=== PATIENT | female | born 1935 | race Caucasian/White ===

== ENCOUNTER 2016-09-14 11:55 | Inpatient (IN) | payer MEDICARE ==
[~2016-09-14] VITALS: Ht 149.9 cm; Wt 62.9 kg
[~2016-09-14 11:55] MED LIST: ACIDTAB4 PO; ALBU1AER INH; CALC600T44 PO; CARV6.252 PO; CLAR10TA7 PO; CLIN150 PO; COZA50TA PO; E-40CAP PO; FLON0.053; FURO20 PO; GABA100C2 PO; MIRT7.5T10 PO; OMEP20TA PO; ORPH100T PO; SYNT112T PO; TAB-TAB PO; VIIB40TA PO; VITA100018 PO; VITA100T5 PO; [UNRECOGNIZED DRUG - REMARK]
[2016-09-14 12:05] VITALS: BP 130/75; PULSE 71; RESP 16; TEMP 98.6; O2SAT 94
--- NOTE | 2016-09-14 12:27 | PD ---
HPI . Cough and chest congestion Chief Complaint: Respiratory Symptoms Time Seen by Provider: 12:16 Travel History International Travel<30 days: No Contact w/Intl Traveler<30days: No Traveled to known affect area: No History of Present Illness HPI Patient presents with a 2 week history of cough and congestion. She is wheezing. She has completed the Z-Nicolas. She is using ProCare twice a day. Her symptoms are not improving. She denies fever but does state that she has yellow sputum production. She has a history of chronic lung disease. PFSH Past Medical History Depression: Yes Cardiovascular Problems: Yes Diabetes: No Diminished Hearing: No GERD: Yes Hypertension: Yes Immunizations Current: No Menopausal: Yes Ovarian Cysts: Yes (LAPAROTOMY) Past Surgical History Appendectomy: Yes Joint Replacement: Yes (KNEE X 3, BILAT SHOULDER) Oral Surgery: Yes (RIGTH TMJ SURGERY) Social History Alcohol Use: Yes (APPROX 1 DRINK PER WEEK) Tobacco Use: No Substance Use: No Allergies-Medications (Allergen,Severity, Reaction): Coded Allergies: Demerol (Verified Allergy, Mild, RASH, 09/14/16) Morphine (Verified Allergy, Mild, RASH, 09/14/16) Penicillin (Verified Allergy, Mild, RASH, 09/14/16) Reported Meds & Prescriptions Reported Meds & Active Scripts Active Reported Proair Hfa 8.5 GM Inh (Albuterol Sulfate) 90 Mcg/Act Aer 2 Puff INH Q6H PRN 108 mcg/actuation Omeprazole 20 Mg Tab 20 Mg PO DAILY Furosemide 20 Mg Tab 20 Mg PO DAILY Tizanidine (Tizanidine HCl) 2 Mg Tab 2 Mg PO HS Mirtazapine 45 Mg Tab 22.5 Mg PO HS Carvedilol 6.25 Mg Tab 6.25 Mg PO BID Losartan (Losartan Potassium) 100 Mg Tab 100 Mg PO DAILY Levothyroxine (Levothyroxine Sodium) 100 Mcg Tab 100 Mcg PO DAILY [vibryd] 40 Mg PO HS Raloxifene (Raloxifene HCl) 60 Mg Tab 60 Mg PO DAILY Gabapentin 300 Mg Cap 300 Mg PO BID Review of Systems Except as stated in HPI: all other systems reviewed are Neg General / Constitutional: No: Fever, Chills Respiratory: Positive: Cough, Shortness of Breath, Wheezing Physical Exam Narrative GENERAL: This is a spry 80-year-old woman who is in no acute distress but who does have audible wheezing. SKIN: Warm and dry. HEAD: Atraumatic. Normocephalic. EYES: Pupils equal and round. ENT: No nasal bleeding or discharge. Mucous membranes pink and moist. NECK: Trachea midline. CARDIOVASCULAR: Regular rate and rhythm. RESPIRATORY: No accessory muscle use. Good air movement throughout. Diffuse coarse expiratory wheezing. GASTROINTESTINAL: Abdomen soft, non-tender, nondistended. MUSCULOSKELETAL: No obvious deformities. No edema. NEUROLOGICAL: Awake and alert. No obvious cranial nerve deficits. Motor grossly within normal limits. Normal speech. PSYCHIATRIC: Appropriate mood and affect; insight and judgment normal. Data Data Last Documented VS Vital Signs Date Time Temp Pulse Resp B/P Pulse Ox O2 Delivery O2 Flow Rate FiO2 09/14/16 13:10 96 Room Air 09/14/16 12:05 98.6 71 16 130/75 Orders Complete Blood Count With Diff (09/14/16 12:21) Basic Metabolic Panel (Bmp) (09/14/16 12:21) B-Type Natriuretic Peptide (09/14/16 12:21) Iv Access Insert/Monitor (09/14/16 12:21) Oximetry (09/14/16 12:21) Chest, Single Ap (09/14/16 12:21) Sodium Chloride 0.9% Flush (Ns Flush) (09/14/16 12:30) Methylprednisolone So Succ Inj (Solumedr (09/14/16 12:30) Albuterol-Ipratropium Neb (Duoneb Neb) (09/14/16 12:30) Labs Laboratory Tests Test 09/14/16 12:42 White Blood Count 4.7 TH/MM3 Red Blood Count 4.39 MIL/MM3 Hemoglobin 13.8 GM/DL Hematocrit 40.7 % Mean Corpuscular Volume 92.7 FL Mean Corpuscular Hemoglobin 31.4 PG Mean Corpuscular Hemoglobin 33.8 % Concent Red Cell Distribution Width 13.7 % Platelet Count 224 TH/MM3 Mean Platelet Volume 8.1 FL Neutrophils (%) (Auto) % Lymphocytes (%) (Auto) % Monocytes (%) (Auto) % Eosinophils (%) (Auto) % Basophils (%) (Auto) % Neutrophils # (Auto) TH/MM3 Lymphocytes # (Auto) TH/MM3 Monocytes # (Auto) TH/MM3 Eosinophils # (Auto) TH/MM3 Basophils # (Auto) TH/MM3 CBC Comment AUTO DIFF Differential Total Cells 100 Counted Neutrophils % (Manual) 59 % Band Neutrophils % 1 % Lymphocytes % 24 % Monocytes % 10 % Eosinophils % 6 % Neutrophils # (Manual) 2.8 TH/MM3 Differential Comment FINAL DIFF MANUAL Platelet Estimate NORMAL Platelet Morphology Comment NORMAL Red Cell Morphology Comment NORMAL Sodium Level 137 MEQ/L Potassium Level 4.6 MEQ/L Chloride Level 100 MEQ/L Carbon Dioxide Level 31.0 MEQ/L Anion Gap 6 MEQ/L Blood Urea Nitrogen 11 MG/DL Creatinine 0.76 MG/DL Estimat Glomerular Filtration 73 ML/MIN Rate Random Glucose 83 MG/DL Calcium Level 8.8 MG/DL B-Type Natriuretic Peptide 120 PG/ML MDM Medical Decision Making Medical Screen Exam Complete: Yes Emergency Medical Condition: Yes Differential Diagnosis My differential diagnosis includes but is not limited to asthma, COPD, bronchitis, pneumonia, CHF Narrative Course Patient presents for evaluation and treatment of cough, chest congestion and wheezing. I have ordered a duo nebs and Solu-Medrol pending her workup. 1:20 PM Chest x-ray is negative for infiltrate. Chest x-ray has been independently viewed by me. CBC has normal white count of 4.7. Electrolytes are normal. BNP is still pending. The patient is improving but not to the point where she is able to go home. She still has audible wheezing. Sats are 94% while receiving a breathing treatment. Physician Communication Physician Communication Dr. Aaliyah Nguyen will admit her for observation. Diagnosis Primary Impression: Bronchitis with bronchospasm Admitting Information Admitting Physician Requests: Admit Condition: Stable Rosana Cardoza MD Sep 14, 2016 12:27
[2016-09-14] MEDS ORDERED: SODIUM CHLORIDE 0.9% FLUSH 5 ML FLUSH IVF PRN (12:30)
[2016-09-14] MEDS ORDERED: methylPREDNISolone SOD SUCC 125 MG/2 ML VIAL IVP ONE (12:30)
[2016-09-14] MEDS ORDERED: vibryd PO (12:36)
[2016-09-14] MEDS ORDERED: LEVO100T5 PO (12:36)
[2016-09-14] MEDS ORDERED: TIZA2TAB PO (12:36)
[2016-09-14] MEDS ORDERED: LOSA100T PO (12:36)
[2016-09-14] MEDS ORDERED: ALBUAER3 INH (12:36)
[2016-09-14] MEDS ORDERED: MIRT45TA PO (12:36)
[2016-09-14] MEDS ORDERED: FURO20TA PO (12:36)
[2016-09-14] MEDS ORDERED: CARV6.252 PO (12:36)
[2016-09-14] MEDS ORDERED: RALO1TAB PO (12:36)
[2016-09-14] MEDS ORDERED: OMEP20TA PO (12:36)
[2016-09-14] MEDS ORDERED: GABA300C5 PO (12:36)
[2016-09-14 12:47] LABS: HEMATOCRIT 40.7 % (35.0-46.0); MEAN CELL VOLUME 92.7 FL (80.0-100.0); MEAN CORPUSCULAR HEMOGLOBIN 31.4 PG (27.0-34.0); MEAN CORPUSCULAR HGB CONC 33.8 % (32.0-36.0); PLATELET COUNT 224 TH/MM3 (150-450); RED BLOOD COUNT 4.39 MIL/MM3 (4.00-5.30); RED CELL DISTRIBUTION WIDTH 13.7 % (11.6-17.2); WHITE BLOOD COUNT 4.7 TH/MM3 (4.0-11.0)
[2016-09-14 12:48] LABS: HEMO FLAGS AUTO DIFF
[2016-09-14 12:54] LABS: POTASSIUM 4.6 MEQ/L (3.5-5.1)
--- NOTE | 2016-09-14 12:56 | RADHPO ---
EXAM DATE/TIME: 09/14/2016 12:44 [facility] COMPARISON: MYOCARDIAL PERF PHARM SPECT, GATED W/EF, September 24, 2013, 15:43. INDICATIONS : Cough, congestion, short of breath. MEDICAL HISTORY : Hypertension. SURGICAL HISTORY : None. ENCOUNTER: Initial ACUITY: 1 week PAIN SCORE: 0/10 LOCATION: Bilateral chest FINDINGS: A single view of the chest demonstrates the lungs to be symmetrically aerated without evidence of mas s, infiltrate or effusion. The cardiac silhouette appears mildly enlarged. Anterior cervical fusion h ardware noted.. Osseous structures are intact. CONCLUSION: Mildly enlarged cardiac silhouette without evidence of congestive heart failure.. Dunia Alexander MD on September 14, 2016 at 12:53 Board Certified Radiologist. This report was verified electronically.
[2016-09-14] MEDS: RESP: ALBUTEROL 2.5 MG/IPRATROPIUM 0.5 MG NEB (SCH) INH ×2 (13:05→13:10)
[2016-09-14 13:10] VITALS: O2SAT 96
[2016-09-14 13:10] LABS: BANDS 1 % (0-6); EOSINOPHILS 6 % (0-4); NEUTROPHIL # MANUAL DIFF 2.8 TH/MM3 (1.8-7.7); POLYS (SEG NEUTROPHILS) 59 % (16-70); WBC DIFF SAMPLE 100
[2016-09-14 13:11] LABS: PLATELET ESTIMATE SMEAR NORMAL (NORMAL); PLATELET MORPHOLOGY NORMAL (NORMAL); SCAN/DIFF FINAL DIFF MANUAL
--- NOTE | 2016-09-14 14:44 | HHI.HP ---
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 Patient says her was sick and she seems to have gotten that from him. She notes increased sputum production and chest discomfort relieved with coughing. Patient has not had any fevers or chills. She did follow up with outpatient urgent care as she is visiting from [place]. She was given a Z-Nicolas and he'll be using her home albuterol inhaler at least twice a day. She did not notice any improvement so she came to the emergency room. Here she is hoarse, coughing, short of breath with exertion and wheezy on exam. Patient's been recommended for further evaluation and treatment in the hospital to do failed outpatient treatment and continue symptoms especially with her known history of bronchiectasis which has been treated multiple times in the past by her promotions firm accounts manager in [place]. Review of Systems Constitutional: DENIES: Diaphoretic episodes, Fatigue, Fever, Weight gain, Weight loss, Chills, Dizziness, Change in appetite, Night Sweats Endocrine: DENIES: Abnorml menstrual pattern, Heat/cold intolerance, Polydipsia , Polyuria, Polyphagia Ears, nose, mouth, throat: DENIES: Tinnitus, Hearing loss, Vertigo, Nasal discharge, Oral lesions, Throat pain, Hoarseness, Ear Pain, Running Nose, Epistaxis, Sinus Pain, Toothache, Odynophagia Respiratory: COMPLAINS OF: Cough, Wheezing, Sputum production, Shortness of breath, DENIES: Apneas, Snoring, Hemoptysis Cardiovascular: COMPLAINS OF: Dyspnea on Exertion, DENIES: Chest pain, Palpitations, Syncope, PND, Lower Extremity Edema, Orthopnea, Claudication Musculoskeletal: DENIES: Joint pain, Muscle aches, Stiffness, Joint Swelling, Back pain, Neck pain Integumentary: DENIES: Abnormal pigmentation, Pruritus, Rash, Nail changes, Breast masses, Breast skin changes, Nipple discharge Hematologic/lymphatic: DENIES: Bruising, Lymphadenopathy Immunologic/allergic: DENIES: Eczema, Urticaria Psychiatric: DENIES: Anxiety, Confusion, Mood changes, Depression, Hallucinations, Agitation, Suicidal Ideation, Homicidal Ideation, Delusions Past Family Social History Past Medical History History of bronchiectasis, GERD, chronic back pain, hypertension, thyroid disease Past Surgical History Multiple surgeries including knee surgery 3, joint surgeries, laparotomy, multiple back surgeries Reported Medications Reviewed in the medical record, did receive outpatient Z-Nicolas in an urgent care office Allergies: Coded Allergies: Demerol (Verified Allergy, Mild, RASH, 09/14/16) Morphine (Verified Allergy, Mild, RASH, 09/14/16) Penicillin (Verified Allergy, Mild, RASH, 09/14/16) Active Ordered Medications Reviewed and the medical record Family History Family history of hypertension Social History Visiting from [place], no current tobacco or alcohol dependency, has been sick with cough Physical Exam Vital Signs Vital Signs Date Time Temp Pulse Resp B/P Pulse Ox O2 Delivery O2 Flow Rate FiO2 09/14/16 13:10 96 Room Air 09/14/16 12:05 98.6 71 16 130/75 94 Physical Exam GENERAL: This is a well-nourished, well-developed patient, in no apparent distress. SKIN: No rashes, ecchymoses or lesions. Cool and dry. HEAD: Atraumatic. Normocephalic. No temporal or scalp tenderness. EYES: Pupils equal round and reactive. Extraocular motions intact. No scleral icterus. No injection or drainage. ENT: Nose without bleeding, purulent drainage or septal hematoma. Throat without erythema, tonsillar hypertrophy or exudate. Uvula midline. Airway patent. NECK: Trachea midline. No JVD or lymphadenopathy. Supple, nontender, no meningeal signs. CARDIOVASCULAR: Regular rate and rhythm without murmurs, gallops, or rubs. RESPIRATORY: Bilateral wheezes and rhonchi productive cough GASTROINTESTINAL: Abdomen soft, non-tender, nondistended. No hepato-splenomegaly , or palpable masses. No guarding. MUSCULOSKELETAL: Extremities without clubbing, cyanosis, or edema. No joint tenderness, effusion, or edema noted. No calf tenderness. Negative Homans sign bilaterally. NEUROLOGICAL: Awake and alert. Cranial nerves II through XII intact. Motor and sensory grossly within normal limits. Five out of 5 muscle strength in all muscle groups. Normal speech. Laboratory Laboratory Tests Test 09/14/16 12:42 White Blood Count 4.7 Red Blood Count 4.39 Hemoglobin 13.8 Hematocrit 40.7 Mean Corpuscular Volume 92.7 Mean Corpuscular Hemoglobin 31.4 Mean Corpuscular Hemoglobin 33.8 Concent Red Cell Distribution Width 13.7 Platelet Count 224 Mean Platelet Volume 8.1 Neutrophils (%) (Auto) Lymphocytes (%) (Auto) Monocytes (%) (Auto) Eosinophils (%) (Auto) Basophils (%) (Auto) Neutrophils # (Auto) Lymphocytes # (Auto) Monocytes # (Auto) Eosinophils # (Auto) Basophils # (Auto) CBC Comment AUTO DIFF Differential Total Cells 100 Counted Neutrophils % (Manual) 59 Band Neutrophils % 1 Lymphocytes % 24 Monocytes % 10 Eosinophils % 6 Neutrophils # (Manual) 2.8 Differential Comment FINAL DIFF MANUAL Platelet Estimate NORMAL Platelet Morphology Comment NORMAL Red Cell Morphology Comment NORMAL Sodium Level 137 Potassium Level 4.6 Chloride Level 100 Carbon Dioxide Level 31.0 Anion Gap 6 Blood Urea Nitrogen 11 Creatinine 0.76 Estimat Glomerular Filtration 73 Rate Random Glucose 83 Calcium Level 8.8 B-Type Natriuretic Peptide 120 Result Diagram: 09/14/16 1242 09/14/16 1242 Imaging Last Impressions Chest X-Ray 09/14/16 1221 Signed Impressions: Service Date/Time: Wednesday, September 14, 2016 12:44 - CONCLUSION: Mildly enlarged cardiac silhouette without evidence of congestive heart failure.. Dunia Alexander MD Assessment and Plan Problem List: (1) Bronchitis with bronchospasm ICD Code: J20.9 Status: Acute Plan: We'll continue with antibiotics, bronchodilators and steroids. Patient with history of staph infections although she denies any history of MRSA. Overall improved with current treatment plan. (2) HTN (hypertension) ICD Code: I10 Status: Acute Plan: Continue home medications for blood pressure which is currently controlled we'll follow while on steroids (3) Thyroid disease ICD Code: E07.9 Status: Acute Plan: Continue Synthroid (4) Chronic back pain ICD Code: M54.9 Status: Acute Plan: We'll continue with patient's current pain regimen which appears to be doing her well Aaliyah Nguyen MD Sep 14, 2016 14:44
[2016-09-14] MEDS ORDERED: ACETAMINOPHEN 325 MG TAB PO PRN (14:45)
[2016-09-14] MEDS ORDERED: RESP: ALBUTEROL 2.5 MG/IPRATROPIUM 0.5 MG NEB (PRN) NEB (14:45)
[2016-09-14] MEDS ORDERED: SODIUM CHLORIDE 0.9% FLUSH 5 ML FLUSH FLUSH PRN (14:45)
[2016-09-14 14:53] VITALS: BP 141/73; PULSE 79; RESP 18; O2SAT 95
[2016-09-14] MEDS ORDERED: PILL SPLITTER OTHER PRN (15:00)
[2016-09-14 15:15] VITALS: BP 149/82; PULSE 71; RESP 18; TEMP 96.8; O2SAT 97
[2016-09-14] MEDS: SULFAMETHOXAZOLE-TRIMETHOPRIM DS 800-160 MG TAB PO SCH ×2 (16:25→21:18)
[2016-09-14] MEDS: DOXYCYCLINE HYCLATE 100 MG TAB PO SCH ×2 (16:25→21:20)
[2016-09-14] MEDS: ENOXAPARIN SODIUM 40 MG/0.4 ML SYRINGE SQ SCH (16:25)
[2016-09-14] MEDS: RESP: ALBUTEROL 2.5 MG/IPRATROPIUM 0.5 MG NEB (SCH) NEB (19:17)
[2016-09-14 20:00] VITALS: BP 127/77; PULSE 97; RESP 18; TEMP 97.7; O2SAT 95
[2016-09-14] MEDS ORDERED: methylPREDNISolone SOD SUCC 125 MG/2 ML VIAL IV PUSH SCH (21:00)
[2016-09-14] MEDS: SODIUM CHLORIDE 0.9% FLUSH 5 ML FLUSH FLUSH SCH (21:16)
[2016-09-14] MEDS: GABAPENTIN 300 MG CAP PO SCH (21:17)
[2016-09-14] MEDS: CARVEDILOL 6.25 MG TAB PO SCH (21:18)
[2016-09-14] MEDS: MIRTAZAPINE 15 MG TAB PO SCH (21:19)
[2016-09-14] MEDS: guaiFENesin E.R. 600 MG TAB PO SCH (21:19)
[2016-09-14] MEDS: VIIBRYD 40 MG PO SCH (22:22)
[2016-09-15] VITALS: BP 91/56; PULSE 90; RESP 16; TEMP 97.1; O2SAT 92
[2016-09-15] MEDS: LEVOTHYROXINE SODIUM 100 MCG TAB PO SCH (05:24)
[2016-09-15 06:42] LABS: AUTOMATED NEUTROPHIL # 6.1 TH/MM3 (1.8-7.7); BASOPHIL % 0.1 % (0.0-2.0); EOSINOPHIL % 0.1 % (0.0-4.0); HEMATOCRIT 41.5 % (35.0-46.0); HEMO FLAGS DIFF FINAL; LYMPH % 10.7 % (9.0-44.0); LYMPHOCYTE # 0.7 TH/MM3 (1.0-4.8); MEAN CELL VOLUME 92.8 FL (80.0-100.0); MEAN CORPUSCULAR HEMOGLOBIN 30.7 PG (27.0-34.0); MEAN CORPUSCULAR HGB CONC 33.1 % (32.0-36.0); MONO % 0.7 % (0.0-8.0); NEUT % 88.4 % (16.0-70.0); PLATELET COUNT 217 TH/MM3 (150-450); POTASSIUM 4.2 MEQ/L (3.5-5.1); RED BLOOD COUNT 4.48 MIL/MM3 (4.00-5.30); RED CELL DISTRIBUTION WIDTH 13.7 % (11.6-17.2); WHITE BLOOD COUNT 6.8 TH/MM3 (4.0-11.0)
[2016-09-15 06:47] LABS: BICARBONATE 28.2 MEQ/L (21.0-32.0)
[2016-09-15] MEDS: RESP: ALBUTEROL 2.5 MG/IPRATROPIUM 0.5 MG NEB (SCH) NEB ×3 (07:29→19:28)
[2016-09-15 08:10] VITALS: BP 144/73; PULSE 71; RESP 18; TEMP 97.3; O2SAT 98
--- NOTE | 2016-09-15 09:43 | HHI.PR ---
Subjective Remarks Patient seen today in follow-up for bronchitis. Doing better. Oxygenation is improved. Tolerating bronchodilators and steroids. Objective Vitals Vital Signs Date Time Temp Pulse Resp B/P Pulse Ox O2 Delivery O2 Flow Rate FiO2 09/15/16 08:10 97.3 71 18 144/73 98 09/15/16 00:00 97.1 90 16 91/56 92 09/14/16 20:00 97.7 97 18 127/77 95 09/14/16 15:15 96.8 71 18 149/82 97 09/14/16 14:53 79 18 141/73 95 Room Air 09/14/16 13:10 96 Room Air 09/14/16 12:05 98.6 71 16 130/75 94 I/O 09/14/16 09/14/16 09/14/16 09/15/16 09/15/16 09/15/16 07:00 15:00 23:00 07:00 15:00 23:00 Intake Total 240 ml 240 ml Balance 240 ml 240 ml Intake Oral 240 ml 240 ml # Voids 2 2 # Bowel Movements 1 0 Result Diagram: 09/15/16 0535 09/15/16 0535 Objective Remarks GENERAL: This is a well-nourished, well-developed patient, in no apparent distress. CARDIOVASCULAR: Regular rate and rhythm without murmurs, gallops, or rubs. RESPIRATORY: Mild scattered wheezes but greatly improved from previous exam GASTROINTESTINAL: Abdomen soft, non-tender, nondistended. Normal active bowel sounds MUSCULOSKELETAL: Extremities without clubbing, cyanosis, or edema. NEURO: Alert & Oriented x4 to person, place, time, situation. Moves all ext x4 A/P Problem List: (1) Bronchitis with bronchospasm ICD Code: J20.9 Status: Acute Plan: We'll continue with iv antibiotics, mucinex, bronchodilators and po steroids. Patient with history of staph infections although she denies any history of MRSA. Overall improved with current treatment plan. Sputum pending (2) HTN (hypertension) ICD Code: I10 Status: Acute Plan: Continue home medications for blood pressure which is currently controlled we'll follow while on steroids (3) Thyroid disease ICD Code: E07.9 Status: Acute Plan: Continue Synthroid (4) Chronic back pain ICD Code: M54.9 Status: Acute Plan: We'll continue with patient's current pain regimen which appears to be doing her well Discharge Planning Discharge home one to 2 days if improved Aaliyah Nguyen MD Sep 15, 2016 09:43
[2016-09-15] MEDS ORDERED: VIIB40TA PO (10:39)
[2016-09-15] MEDS: SULFAMETHOXAZOLE-TRIMETHOPRIM DS 800-160 MG TAB PO SCH ×2 (11:07→23:05)
[2016-09-15] MEDS: SODIUM CHLORIDE 0.9% FLUSH 5 ML FLUSH FLUSH SCH ×2 (11:07→23:05)
[2016-09-15] MEDS: CARVEDILOL 6.25 MG TAB PO SCH ×2 (11:07→23:07)
[2016-09-15] MEDS: RALOXIFENE HCL 60 MG TAB PO SCH (11:08)
[2016-09-15] MEDS: LOSARTAN 50 MG TAB PO SCH (11:08)
[2016-09-15] MEDS: DOXYCYCLINE HYCLATE 100 MG TAB PO SCH ×2 (11:08→23:16)
[2016-09-15] MEDS: PANTOPRAZOLE SOD 20 MG DELAYED RELEASE TAB PO SCH (11:08)
[2016-09-15] MEDS: GABAPENTIN 300 MG CAP PO SCH ×2 (11:08→23:11)
[2016-09-15] MEDS: guaiFENesin E.R. 600 MG TAB PO SCH ×2 (11:08→23:05)
[2016-09-15 12:07] VITALS: BP 113/71; PULSE 69; RESP 18; TEMP 97.3; O2SAT 99
[2016-09-15] MEDS: ENOXAPARIN SODIUM 40 MG/0.4 ML SYRINGE SQ SCH (16:11)
[2016-09-15 17:17] VITALS: BP 141/73; PULSE 82; RESP 18; TEMP 97.3; O2SAT 95
[2016-09-15 20:00] VITALS: BP 126/80; PULSE 82; RESP 18; TEMP 98.1; O2SAT 96
[2016-09-15] MEDS: predniSONE 20 MG TAB PO SCH (23:05)
[2016-09-15] MEDS: MIRTAZAPINE 15 MG TAB PO SCH (23:06)
[2016-09-15] MEDS: VIIBRYD 40 MG PO SCH (23:11)
[2016-09-16] VITALS: BP 137/77; PULSE 85; RESP 18; TEMP 97.7; O2SAT 93
[2016-09-16] MEDS: LEVOTHYROXINE SODIUM 100 MCG TAB PO SCH (05:06)
[2016-09-16] MEDS: RESP: ALBUTEROL 2.5 MG/IPRATROPIUM 0.5 MG NEB (SCH) NEB (07:28)
[2016-09-16 08:00] VITALS: BP 120/75; PULSE 81; RESP 18; TEMP 97; O2SAT 97
[2016-09-16] MEDS: PANTOPRAZOLE SOD 20 MG DELAYED RELEASE TAB PO SCH (08:33)
[2016-09-16] MEDS: LOSARTAN 50 MG TAB PO SCH (08:33)
[2016-09-16] MEDS: predniSONE 20 MG TAB PO SCH (08:33)
[2016-09-16] MEDS: GABAPENTIN 300 MG CAP PO SCH (08:33)
[2016-09-16] MEDS: guaiFENesin E.R. 600 MG TAB PO SCH (08:34)
[2016-09-16] MEDS: RALOXIFENE HCL 60 MG TAB PO SCH (08:34)
[2016-09-16] MEDS: SULFAMETHOXAZOLE-TRIMETHOPRIM DS 800-160 MG TAB PO SCH (08:34)
[2016-09-16] MEDS: DOXYCYCLINE HYCLATE 100 MG TAB PO SCH (08:34)
[2016-09-16] MEDS: CARVEDILOL 6.25 MG TAB PO SCH (08:34)
[2016-09-16] MEDS: SODIUM CHLORIDE 0.9% FLUSH 5 ML FLUSH FLUSH SCH (08:37)
[2016-09-16] MEDS ORDERED: IPRASOL NEB (10:07)
[2016-09-16] MEDS ORDERED: PRED20 PO (10:07)
[2016-09-16] MEDS ORDERED: NEBULIZER1 MI1 (10:08)
--- NOTE | 2016-09-16 10:09 | HHI.DCPOC ---
Discharge Care Plan Diagnosis: (1) HTN (hypertension) (2) Bronchitis with bronchospasm Goals to Promote Your Health * To prevent worsening of your condition and complications * To maintain your health at the optimal level Directions to Meet Your Goals Take your medications as prescribed Follow your dietary instruction Follow activity as directed Keep your appointments as scheduled Take your immunizations and boosters as scheduled If your symptoms worsen call your PCP, if no PCP go to Urgent Care Center or Emergency Room Smoking is Dangerous to Your Health. Avoid second hand smoke Call the 24-hour hour crisis hotline for domestic abuse at Aaliyah Nguyen MD Sep 16, 2016 10:09
[2016-09-16] MEDS ORDERED: DOXY100T PO (10:13)
--- NOTE | 2016-09-16 10:14 | HHI.DS ---
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 Patient says her was sick and she seems to have gotten that from him. She notes increased sputum production and chest discomfort relieved with coughing. Patient has not had any fevers or chills. She did follow up with outpatient urgent care as she is visiting from [place]. She was given a Z-Nicolas and he'll be using her home albuterol inhaler at least twice a day. She did not notice any improvement so she came to the emergency room. Here she is hoarse, coughing, short of breath with exertion and wheezy on exam. 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 CBC/BMP: 09/15/16 0535 09/15/16 0535 Significant Findings Laboratory Tests Test 09/14/16 09/15/16 12:42 05:35 Monocytes % 10 % (0-8) Eosinophils % 6 % (0-4) Estimat Glomerular Filtration 73 ML/MIN (>89) 85 ML/MIN (>89) Rate B-Type Natriuretic Peptide 120 PG/ML (0-100) Neutrophils (%) (Auto) 88.4 % (16.0-70.0) Lymphocytes # (Auto) 0.7 TH/MM3 (1.0-4.8) Random Glucose 137 MG/DL (74-106) PE at Discharge GENERAL: This is a well-nourished, well-developed patient, in no apparent distress. CARDIOVASCULAR: Regular rate and rhythm without murmurs, gallops, or rubs. RESPIRATORY: Mild scattered wheezes but greatly improved from previous exam GASTROINTESTINAL: Abdomen soft, non-tender, nondistended. Normal active bowel sounds MUSCULOSKELETAL: Extremities without clubbing, cyanosis, or edema. NEURO: Alert & Oriented x4 to person, place, time, situation. Moves all ext x4 Hospital Course Dizzy and evaluated and treated for bronchospasm due to bronchitis. Patient has a history of bronchiectasis and had some worsening symptoms. Sputum cultures so normal respiratory vishnu and the patient did well with steroids, bronchodilators and some antibiotics. Her other chronic medical problems remained quite stable. She was hypoxemic and this improved with medical treatment Pt Condition on Discharge: Good Discharge Disposition: Discharge Home Discharge Time: > 30 minutes Discharge Instructions DIET: Follow Instructions for: As Tolerated, No Restrictions Activities you can perform: Regular-No Restrictions Follow up Referrals: PCP Follow-up - 2 Weeks New Medications: Nebulizer (Nebulizer) 1 Mis Mis 1 EA .ROUTE DIRECTED Breathing Treatment #1 Ref 0 EA Doxycycline Hyclate (Doxycycline Hyclate) 100 Mg Tab 100 MG PO BID PRN Infection #10 TAB Ipratropium-Albuterol Neb (Duoneb) 0.5-2.5 Mg/3 Ml Neb 1 AMPULE NEB Q6HR WHILE AWAKE NEB PRN bronchiectasis #90 ML Prednisone (Prednisone) 20 Mg Tab 20 MG PO BID Take 20 mg twice a day for 3 days and 20 mg daily for 3 days then 10 mg daily for 3 days and stop bronchiectasis #15 TAB Continued Medications: Albuterol 8.5 GM Inh (Proair Hfa 8.5 GM Inh) 90 Mcg/Act Aer 2 PUFF INH Q6H 108 mcg/actuation PRN SHORTNESS OF BREATH #1 Ref 0 INHALER Carvedilol (Carvedilol) 6.25 Mg Tab 6.25 MG PO BID #60 Ref 0 TAB Furosemide (Furosemide) 20 Mg Tab 20 MG PO DAILY #30 Ref 0 TAB Gabapentin (Gabapentin) 300 Mg Cap 300 MG PO BID #60 Ref 0 CAP Levothyroxine (Levothyroxine) 100 Mcg Tab 100 MCG PO DAILY Thyroid #30 Ref 0 TAB Losartan (Losartan) 100 Mg Tab 100 MG PO DAILY Blood Pressure Management #30 Ref 0 TAB Mirtazapine (Mirtazapine) 45 Mg Tab 22.5 MG PO HS Depression Control #30 Ref 0 TAB Omeprazole (Omeprazole) 20 Mg Tab 20 MG PO DAILY #30 Ref 0 TAB Raloxifene (Raloxifene) 60 Mg Tab 60 MG PO DAILY Chemotherapy Management #30 Ref 0 TAB Tizanidine (Tizanidine) 2 Mg Tab 2 MG PO HS Muscle Spasm Ref 0 TAB Vilazodone (Viibryd) 40 Mg Tab 40 MG PO HS Control Depression #30 Ref 0 TAB Aaliyah Nguyen MD Sep 16, 2016 10:14
== END 2016-09-16 12:01 | disposition home or self-care (01) | DRG 203 ==
LOC: PHED 11:55 → PHEDA 13:50 → OBSVTOIN 14:37 → PH3A 15:22
PROVIDERS: ADMIT Hospitalist; ATTEND Hospitalist
DX: J20.9 Acute bronchitis, unspecified (principal); I10 Essential (primary) hypertension; J47.9 Bronchiectasis, uncomplicated; R09.02 Hypoxemia; E07.9 Disorder of thyroid, unspecified; G89.29 Other chronic pain; M54.9 Dorsalgia, unspecified; K21.9 Gastro-esophageal reflux disease without esophagitis; F32.9 Major depressive disorder, single episode, unspecified; Z88.0 Allergy status to penicillin; Z88.5 Allergy status to narcotic agent; Z96.659 Presence of unspecified artificial knee joint; Z96.612 Presence of left artificial shoulder joint; Z96.611 Presence of right artificial shoulder joint
CPT/HCPCS: 71010; 80048; 83880; 85007; 85025; 85027; 87070; 87205; 94640; 94664; 96374; J1650; J2930; J7512

== ENCOUNTER 2016-10-22 12:07 | Emergency (ER) | payer MEDICARE ==
[~2016-10-22] VITALS: Ht 152.4 cm; Wt 65.0 kg
[~2016-10-22 12:07] MED LIST changes: -ACIDTAB4 PO; -ALBU1AER INH; +ALBUAER3 INH; -CALC600T44 PO; -CLAR10TA7 PO; -CLIN150 PO; -COZA50TA PO; +DOXY100T PO; -E-40CAP PO; -FLON0.053; -FURO20 PO; +FURO20TA PO; -GABA100C2 PO; +GABA300C5 PO; +IPRASOL NEB; +LEVO100T5 PO; +LOSA100T PO; +MIRT45TA PO; -MIRT7.5T10 PO; +NEBULIZER1 MI1; -ORPH100T PO; +PRED20 PO; +RALO1TAB PO; -SYNT112T PO; -TAB-TAB PO; +TIZA2TAB PO; -VITA100018 PO; -VITA100T5 PO; -[UNRECOGNIZED DRUG - REMARK]
[2016-10-22 12:14] VITALS: BP 136/70; PULSE 72; RESP 16; TEMP 98.5; O2SAT 99
[2016-10-22] MEDS ORDERED: traMADol HCL 50 MG TAB PO ONE (13:30)
--- NOTE | 2016-10-22 13:34 | PD ---
HPI Chief Complaint: Musculoskeletal Complaint Time Seen by Provider: 13:31 Travel History International Travel<30 days: No Contact w/Intl Traveler<30days: No Traveled to known affect area: No History of Present Illness HPI Patient comes in complaining of left hip pain ongoing for a week. Patient states she's had problems with her hip in the past however she was doing well up to approximately one-week ago. Patient denies any direct trauma but states the pain began after her and her were rotating a mattress. Patient states she's had orthoscopic surgery on her right hip and thinks she may needed on her left. Patient called her primary care doctor's office today who recommend she come to the emergency department for further treatment and evaluation. Describes pain as sharp and aching pain that radiates distally. Pain is worse with walking and certain movement. Patient has been taking ibuprofen 800 mg and using topical Voltaren gel with some relief of her symptoms. Denies any fevers, loss or change in bowel or bladder, numbness or tingling anywhere. Patient reports a prior to injury she was able to ambulate normally but since this had started using a cane. PFSH Past Medical History Arthritis: Yes Autoimmune Disease: No Depression: Yes Cardiovascular Problems: Yes Diabetes: No Diminished Hearing: No GERD: Yes Genitourinary: No Hypertension: Yes Immune Disorder: No Musculoskeletal: Yes (carpal tunnel) Neurologic: No Psychiatric: Yes Reproductive: Yes (INFERTILITY ISSUES ) Respiratory: Yes Immunizations Current: No Thyroid Disease: Yes (HYPERTHYROIDISM ) ?: Not Menopausal: Yes Ovarian Cysts: Yes (LAPAROTOMY) Past Surgical History Abdominal Surgery: Yes (appendectomy, Rll BIOPSIES AND WEDGE RESECTIONS ) Appendectomy: Yes Gynecologic Surgery: Yes (WEDGE RESECTION OF OVARIES AND UTERINE SUSP. ) Joint Replacement: Yes (bilateral knees, ) Oral Surgery: Yes (R TMJ ) Thoracic Surgery: Yes (CINCH SURGERY FOR ESOPHAGEAL EROSION ) Social History Alcohol Use: Yes (APPROX 1 DRINK PER WEEK) Tobacco Use: No Substance Use: No Allergies-Medications (Allergen,Severity, Reaction): Coded Allergies: Demerol (Verified Allergy, Mild, RASH, 10/22/16) Morphine (Verified Allergy, Mild, RASH, 10/22/16) Penicillin (Verified Allergy, Mild, RASH, 10/22/16) Levaquin (Verified Adverse Reaction, Severe, SEVERE BONE PAIN, 10/22/16) Reported Meds & Prescriptions Reported Meds & Active Scripts Active Tramadol (Tramadol HCl) 50 Mg Tab 50 Mg PO Q8H PRN Ibuprofen 800 Mg Tab 800 Mg PO Q8H PRN Doxycycline Hyclate 100 Mg Tab 100 Mg PO BID PRN Nebulizer 1 Mis Mis 1 Ea .ROUTE DIRECTED Prednisone 20 Mg Tab 20 Mg PO BID Take 20 mg twice a day for 3 days and 20 mg daily for 3 days then 10 mg daily for 3 days and stop Duoneb (Ipratropium-Albuterol Neb) 0.5-2.5 Mg/3 Ml Neb 1 Ampule NEB Q6HR WHILE AWAKE NEB PRN Reported Viibryd (Vilazodone) 40 Mg Tab 40 Mg PO HS Proair Hfa 8.5 GM Inh (Albuterol Sulfate) 90 Mcg/Act Aer 2 Puff INH Q6H PRN 108 mcg/actuation Omeprazole 20 Mg Tab 20 Mg PO DAILY Furosemide 20 Mg Tab 20 Mg PO DAILY Tizanidine (Tizanidine HCl) 2 Mg Tab 2 Mg PO HS Mirtazapine 45 Mg Tab 22.5 Mg PO HS Carvedilol 6.25 Mg Tab 6.25 Mg PO BID Losartan (Losartan Potassium) 100 Mg Tab 100 Mg PO DAILY Levothyroxine (Levothyroxine Sodium) 100 Mcg Tab 100 Mcg PO DAILY Raloxifene (Raloxifene HCl) 60 Mg Tab 60 Mg PO DAILY Gabapentin 300 Mg Cap 300 Mg PO BID Review of Systems Except as stated in HPI: all other systems reviewed are Neg Physical Exam Narrative GENERAL: Well-developed, well nourished, in no acute distress, and non-ill appearing. SKIN: Warm and dry. HEAD: Atraumatic. Normocephalic. EYES: Pupils equal and round. EOMI. No scleral icterus. No injection or drainage. ENT: No nasal bleeding or discharge. Mucous membranes pink and moist. NECK: Trachea midline. Supple. No nuclear rigidity. CARDIOVASCULAR: Dorsal pulses 2+ intact and equal bilaterally. Capillary refill less than 2 seconds. No pedal edema. RESPIRATORY: No accessory muscle use. No respiratory distress. GASTROINTESTINAL: Abdomen soft, non-tender, nondistended. Hepatic and splenic margins not palpable. No pulsatile mass. MUSCULOSKELETAL: No obvious deformities. No clubbing. No cyanosis. No edema. Decreased range of motion left hip secondary to pain. Hip: FROM and equal BL with passive flexion, extension, Abduction, Adduction, and internal/external rotation. Pulses equal BL distal to injury. Capillary refill less than 2 seconds distal to injury and equal BL. FROM distal to injury and equal BL. Strength distal to injury equal BL. NV intact distal to injury and equal BL. Plantar flexion and dorsal flexion equal BL. Dorsal pulses equal BL. Patient reports increased pain with internal/external rotation of her left hip. NEUROLOGICAL: Awake and alert. No obvious cranial nerve deficits. Motor grossly within normal limits. Normal speech. PSYCHIATRIC: Appropriate mood and affect; insight and judgment normal. Data Data Last Documented VS Vital Signs Date Time Temp Pulse Resp B/P Pulse Ox O2 Delivery O2 Flow Rate FiO2 10/22/16 12:14 98.5 72 16 136/70 99 Orders Urinalysis - C+S If Indicated (10/22/16 13:22) Hip, Uni(Ap&Lat) W Ap Pelvis (10/22/16 ) Tramadol (Ultram) (10/22/16 13:30) Labs Laboratory Tests Test 10/22/16 13:50 Urine Collection Type CLEAN CATCH Urine Color YELLOW Urine Turbidity CLEAR Urine pH 7.0 Urine Specific [place] 1.009 Urine Protein NEG mg/dL Urine Glucose (UA) NEG mg/dL Urine Ketones NEG mg/dL Urine Occult Blood NEG Urine Nitrite NEG Urine Bilirubin NEG Urine Leukocyte Esterase NEG Urine WBC 0-2 /hpf Urine Squamous Epithelial 0-5 /hpf Cells Microscopic Urinalysis Comment CULT NOT INDICATED Urine Collection Time 13:50 [facility] Medical Decision Making Medical Screen Exam Complete: Yes Emergency Medical Condition: Yes Differential Diagnosis Fracture, strain, avascular necrosis, UTI, other Narrative Course There is no clinical evidence for fracture. There is no clinical evidence to suspect bony injury by exam. Radiographic examination revealed no fracture seen at this time. No obvious ligamental injury or internal derangement is noted at this time. The distal extremity appears neurovascularly intact, without evidence of neurovascular injury nor compartment syndrome. Tendon exam also was intact. The patient was discharged on pain medication and given warnings for vascular compromise. The patient is to follow up with primary care provider and/ or Orthopedics. The patient agrees with plan. Patient in no obvious distress upon re-evaluation. All pertinent laboratory/ Radiology result(s) discussed with patient. Patient was asked if they wanted to speak to my attending, which the patient did not wish to do at this time. Any questions/concerns in reference to patient diagnosis/condition discussed and clarified prior to patient's discharge. Reinforced sheer importance of close follow up with patient's primary physician or primary care clinic. Instructed patient to return to ED immediately, if symptoms return/worsen. Pt showed understanding of above instructions. Further instructions and recommendations were detailed in discharge paperwork. Pt ambulated without difficulty out of ED at discharge with her cane. Diagnosis Primary Impression: Left hip pain Referrals: Miller Spencer MD Patient Instructions: General Instructions, Hip Pain (ED) Additional Instructions: Follow-up with your primary care physician and/or orthopedics in 2-3 days for reevaluation. Take all medication as prescribed. Return to the emergency department if symptoms get worse. Med/Other Pt SpecificInfo: Prescription(s) given Scripts Tramadol 50 Mg Tab50 Mg PO Q8H PRN (PAIN GREATER THAN 7) #9 TAB Ref 0 Prov:Trung Earl MD 10/22/16 Ibuprofen 800 Mg [id number] Mg PO Q8H PRN (PAIN SCALE 1 TO 10) #12 TAB Ref 0 Prov:Trung Earl MD 10/22/16 Disposition: 01 DISCHARGE HOME Condition: Stable Timothy Bryan Oct 22, 2016 13:34
[2016-10-22 14:05] LABS: BLOOD, URINE NEG (NEG); GLUCOSE,URINE NEG (NEG); KETONE, URINE NEG (NEG); NITRITE,URINE NEG (NEG)
--- NOTE | 2016-10-22 14:08 | RADHPO ---
EXAM DATE/TIME: 10/22/2016 13:42 [facility] COMPARISON: No previous studies available for comparison. INDICATIONS : Left hip pain with no apparent injury. MEDICAL HISTORY : Hypertension. Arthritis. Hyperthyroidism. Bilateral knee replacements. SURGICAL HISTORY : Appendectomy. Fusion, lumbar. ENCOUNTER: Initial ACUITY: 1 week PAIN SCORE: 10/10 LOCATION: Left hip FINDINGS: Examination of the left hip was performed with AP Pelvis. The primary and secondary trabecular patte rn of the femoral neck is intact. There is mild superior joint space narrowing and sclerosis.. The a cetabulum is grossly intact. Postoperative changes are noted in the lower lumbar spine status post mu ltilevel fusion. CONCLUSION: Mild degenerative change in both hips. Dionicio Miguel MD on October 22, 2016 at 14:06 Board Certified Radiologist. This report was verified electronically.
[2016-10-22 14:11] LABS: METHOD OF COLLECTION CLEAN CATCH; SQUAMOUS EPITHELIAL CELL URINE 0-5 /hpf (0-5); URINE COLOR YELLOW (YELLW/STRAW); WBC, URINE 0-2 /hpf (0-5)
[2016-10-22 14:12] LABS: COMMENT (UR) CULT NOT INDICATED; CULTURE IF INDICATED CULT NOT INDICATED
[2016-10-22] MEDS ORDERED: IBUP800T23 PO (14:19)
[2016-10-22] MEDS ORDERED: TRAM50TA PO (14:19)
== END 2016-10-22 14:34 | disposition home or self-care (01) ==
LOC: PHED 12:07 → PHEFT 14:34
DX: M25.552 Pain in left hip (principal)
CPT/HCPCS: 73502; 81001; 99283

== ENCOUNTER 2016-11-20 10:43 | Emergency (ER) | payer MEDICARE ==
[~2016-11-20] VITALS: Ht 152.4 cm; Wt 68.8 kg
[~2016-11-20 10:43] MED LIST changes: +IBUP800T23 PO; +TRAM50TA PO
[2016-11-20 10:45] VITALS: BP 140/92; PULSE 77; RESP 15; TEMP 97.8; O2SAT 99
[2016-11-20] MEDS ORDERED: VITA400C2 PO (11:11)
[2016-11-20] MEDS ORDERED: CLAR10CA3 PO (11:11)
[2016-11-20] MEDS ORDERED: PYRI100T PO (11:11)
[2016-11-20] MEDS ORDERED: VITA10003 PO (11:11)
[2016-11-20] MEDS ORDERED: MULTTAB67 PO (11:11)
[2016-11-20] MEDS ORDERED: CALC1TAB87 PO (11:11)
[2016-11-20] MEDS ORDERED: LACTCAP8 PO (11:11)
[2016-11-20] MEDS ORDERED: VITA10007 PO (11:11)
--- NOTE | 2016-11-20 11:13 | PD ---
HPI Chief Complaint: Hip Injury Time Seen by Provider: 10:54 Travel History International Travel<30 days: No Contact w/Intl Traveler<30days: No Traveled to known affect area: No History of Present Illness HPI This is an 81-year-old female who presents to the emergency department having had a mechanical fall 2 weeks ago where she flipped forward on her walker and landed on her left hip. Since then she's had intermittent sharp pains in her left hip, worse over the past 3 days, stabbing, associated with some difficulty walking. She says that she has been in physical therapy for gait instability ever since she was hospitalized at [facility] ago. She does have chronic osteoarthritis. PFSH Past Medical History Arthritis: Yes Autoimmune Disease: No Depression: Yes Cardiovascular Problems: Yes Diabetes: No Diminished Hearing: No Gastrointestinal Disorders: Yes GERD: Yes Genitourinary: No Hypertension: Yes Immune Disorder: No Implanted Vascular Access Dvce: Yes Musculoskeletal: Yes (carpal tunnel) Neurologic: No Psychiatric: Yes Reproductive: Yes (INFERTILITY ISSUES ) Respiratory: Yes Immunizations Current: No Thyroid Disease: Yes (HYPERTHYROIDISM ) Tetanus Vaccination: > 5 Years Influenza Vaccination: Yes ?: Not Menopausal: Yes Ovarian Cysts: Yes (LAPAROTOMY) Past Surgical History Abdominal Surgery: Yes (appendectomy, Rll BIOPSIES AND WEDGE RESECTIONS ) Appendectomy: Yes Gynecologic Surgery: Yes (WEDGE RESECTION OF OVARIES AND UTERINE SUSP. ) Joint Replacement: Yes (bilateral knees, ) Oral Surgery: Yes (R TMJ ) Thoracic Surgery: Yes (CINCH SURGERY FOR ESOPHAGEAL EROSION ) Other Surgery: Yes Social History Alcohol Use: Yes (APPROX 1 DRINK PER WEEK) Tobacco Use: No Substance Use: No Allergies-Medications (Allergen,Severity, Reaction): Coded Allergies: Demerol (Verified Allergy, Mild, RASH, 11/20/16) Morphine (Verified Allergy, Mild, RASH, 11/20/16) Penicillin (Verified Allergy, Mild, RASH, 11/20/16) Levaquin (Verified Adverse Reaction, Severe, SEVERE BONE PAIN, 11/20/16) Reported Meds & Prescriptions Reported Meds & Active Scripts Active Tramadol (Tramadol HCl) 50 Mg Tab 50 Mg PO Q8H PRN Duoneb (Ipratropium-Albuterol Neb) 0.5-2.5 Mg/3 Ml Neb 1 Ampule NEB Q6HR WHILE AWAKE NEB PRN Reported Claritin (Loratadine) 10 Mg Cap 10 Mg PO DAILY Calcium 600 with Vitamin D (Calcium Carbonate-Cholecalciferol) 600-400 mg-Unit Tab 1 Tab PO DAILY Vitamin E 400 Unit Cap 400 Units PO DAILY Vitamin D-3 (Cholecalciferol) 1,000 Unit Tab 1,000 Units PO DAILY Vitamin C (Ascorbic Acid) 1,000 Mg Tab 1,000 Mg PO DAILY Vitamin B-6 (Pyridoxine HCl) 100 Mg Tab 100 Mg PO DAILY Probiotic (Lactobacillus Acidophilus) 1 Cap Cap 1 Cap PO DAILY Multiple Vitamin 1 Tab 1 Tab PO DAILY Viibryd (Vilazodone) 40 Mg Tab 40 Mg PO HS Proair Hfa 8.5 GM Inh (Albuterol Sulfate) 90 Mcg/Act Aer 2 Puff INH Q6H PRN 108 mcg/actuation Omeprazole 20 Mg Tab 20 Mg PO DAILY Furosemide 20 Mg Tab 20 Mg PO DAILY Tizanidine (Tizanidine HCl) 2 Mg Tab 4 Mg PO HS Mirtazapine 45 Mg Tab 22.5 Mg PO HS Carvedilol 6.25 Mg Tab 6.25 Mg PO BID Losartan (Losartan Potassium) 100 Mg Tab 100 Mg PO DAILY Levothyroxine (Levothyroxine Sodium) 100 Mcg Tab 100 Mcg PO DAILY Raloxifene (Raloxifene HCl) 60 Mg Tab 60 Mg PO DAILY Gabapentin 300 Mg Cap 600 Mg PO HS Review of Systems Except as stated in HPI: all other systems reviewed are Neg Physical Exam Narrative GENERAL:Well appearing, no acute distress SKIN: Warm and dry. HEAD: Atraumatic. Normocephalic. EYES: Pupils equal and round. No injection or drainage. ENT: Moist mucous membranes NECK: Trachea midline. CARDIOVASCULAR: Regular rate and rhythm. No murmur appreciated. 2+ DP pulses with normal capillary refill in both feet. RESPIRATORY: Clear to auscultation. Breath sounds equal bilaterally. GASTROINTESTINAL: Abdomen soft, non-tender, nondistended. MUSCULOSKELETAL: Pain with external rotation of the left hip. NEUROLOGICAL: Awake and alert. No obvious cranial nerve deficits. Moving all extremities. 5 out of 5 strength in the bilateral lower extremities with normal sensation. PSYCHIATRIC: Appropriate mood and affect; insight and judgment normal. Data Data Last Documented VS Vital Signs Date Time Temp Pulse Resp B/P Pulse Ox O2 Delivery O2 Flow Rate FiO2 11/20/16 10:45 97.8 77 15 140/92 99 Orders Hip, Uni(Ap&Lat) Wo Ap Pelvis (11/20/16 ) MDM Medical Decision Making Medical Screen Exam Complete: Yes Emergency Medical Condition: Yes Interpretation(s) Afebrile, no tachycardia, hypertensive X-ray: No acute fracture of the left hip Differential Diagnosis Femoral neck fracture, pubic ramus fracture, osteoarthritis, bursitis Narrative Course This is an 81-year-old female who presents to the emergency department with intermittent pain in her left hip. She long history of osteoarthritis. She had a fall 2 weeks ago and has been walking on the leg since. She has a normal neurovascular exam. X-ray was obtained which demonstrates no acute fracture. I think the patient requires orthopedic follow-up. Diagnosis Primary Impression: Osteoarthritis of left hip Qualified Code: M16.12 - Primary osteoarthritis of left hip Referrals: Guerrero Conn MD Patient Instructions: General Instructions Additional Instructions: If you develop increasing or severe pain, numbness or weakness or inability to walk return to the emergency room. Med/Other Pt SpecificInfo: No Change to Meds Disposition: 01 DISCHARGE HOME Condition: Stable Patrizia Nation MD Nov 20, 2016 11:13
--- NOTE | 2016-11-20 11:41 | RADHPO ---
EXAM DATE/TIME: 11/20/2016 11:24 [facility] COMPARISON: HIP LEFT (AP&LAT 2/3VWS) W AP PELVIS, October 22, 2016, 13:42. INDICATIONS : Left hip pain for three days. Patient states she fell over one week ago. MEDICAL HISTORY : Hypertension. Arthritis. Hyperthyroidism. Bilateral knee replacements. SURGICAL HISTORY : Appendectomy. Fusion, lumbar. ENCOUNTER: Initial ACUITY: 3 days PAIN SCORE: 10/10 LOCATION: Left hip. FINDINGS: A two view examination of the left hip was performed. The primary and secondary trabecular pattern o f the femoral neck is intact. The hip joint is of normal width without significant sclerosis or bony hypertrophy. The acetabulum is grossly intact. Few small injection granulomas are noted in the left buttocks. CONCLUSION: No acute fracture or joint dislocation. Connor Gutierres MD on November 20, 2016 at 11:39 Board Certified Radiologist. This report was verified electronically.
[2016-11-20] MEDS ORDERED: ACETAMINOPHEN/HYDROcodone 325 MG/5 MG TAB PO ONE (12:00)
== END 2016-11-20 12:32 | disposition home or self-care (01) ==
LOC: PHEFT 10:43
DX: M16.12 Unilateral primary osteoarthritis, left hip (principal); I10 Essential (primary) hypertension; E07.9 Disorder of thyroid, unspecified; W19.XXXA Unspecified fall, initial encounter; Y93.01 Activity, walking, marching and hiking; Y92.9 Unspecified place or not applicable; Y99.8 Other external cause status
CPT/HCPCS: 73502; 99283